=== PATIENT | female | born 1940 | race Two or more races ===

== ENCOUNTER 2025-01-15 02:43 | Inpatient (IN) | payer MEDICAID, OTHER ==
[~2025-01-15] VITALS: Ht 162.6 cm; Wt 72.6 kg
[2025-01-15] MEDS ORDERED: OMEP40CA21 PO (03:37)
[2025-01-15] MEDS ORDERED: LOSA50TA39 PO (03:37)
[2025-01-15] MEDS ORDERED: ALPR-324 PO (03:43)
[2025-01-15] MEDS ORDERED: HYDR-500 PO (03:43)
[2025-01-15 04:13] LABS: PLATELET COUNT (AUTO) 312 K/uL (150-450); RED BLOOD CELL COUNT(AUTO) 4.31 MIL/uL (4.0-5.2); RED CELL DISTRIBUTION WIDTH 13.6 % (11.5-15.0); WHITE BLOOD COUNT (AUTO) 6.5 K/uL (4.3-11.0)
[2025-01-15 04:29] LABS: INR 0.98 (0.91-1.10); LACTIC ACID 1.5 mmol/L (0.4-2.0)
[2025-01-15 04:33] LABS: ALCOHOL, BLOOD < 3 mg/dL (0-10); ASPARTATE AMINOTRANSFERASE 18 U/L (15-37); CALCIUM, SERUM 9.7 mg/dL (8.5-10.1); CREATININE 0.7 mg/dL (0.6-1.3); SODIUM SERUM 140 mmol/L (136-145); TOTAL PROTEIN, SERUM 7.1 g/dL (6.4-8.2); UREA NITROGEN, BLOOD 7 mg/dL (7-18)
[2025-01-15 04:35] LABS: AMPHETAMINE, URINE NEGATIVE (NEGATIVE); BARBITURATE, URINE NEGATIVE (NEGATIVE); BENZODIAZEPINE, URINE POSITIVE (NEGATIVE); CANNABINOID, URINE NEGATIVE (NEGATIVE); COCCAINE, URINE NEGATIVE (NEGATIVE); OPIATE, URINE NEGATIVE (NEGATIVE)
[2025-01-15 04:54] LABS: PHENOBARBITAL < 15 ug/ml (15-39); VALPROIC ACID < 3 ug/mL (50-100)
[2025-01-15 05:12] LABS: APPEARANCE,URINE SLIGHTLY CLOUDY (CLEAR); BLOOD, URINE 1+ Ery/uL (NEGATIVE); LEUKOCYTE ESTERASE ,URINE 3+ (NEGATIVE); NITRITE, URINE NEGATIVE (NEGATIVE); UGLUCOSE NEGATIVE (NEGATIVE)
[2025-01-15 05:15] LABS: ADD URINE CULTURE YES; SQUAMOUS EPITHELIAL CELL,UR Rare /HPF (None Seen)
[2025-01-15] MEDS ORDERED: CIPROFLOXACIN IV RTU 200 ML IV ONE (05:36)
[2025-01-15] MEDS: CIPROFLOXACIN IV RTU 400 MG in PREMIX 1 EA IV SCH (05:46)
[2025-01-15 07:52] VITALS: BP 146/52; TEMP 98.2; O2SAT 96
[2025-01-15] MEDS ORDERED: ONDANSETRON HCL/PF 4 MG/2 ML VIAL IVP PRN (10:00)
[2025-01-15] MEDS ORDERED: ACETAMINOPHEN 325 MG TABLET PO PRN (10:00)
[2025-01-15] MEDS ORDERED: Z GUARD REMEDY 4 OZ OINT TP PRN (10:00)
[2025-01-15] MEDS ORDERED: MAG HYDROX/AL HYDROX/SIMETH 30 ML UDC PO PRN (10:00)
[2025-01-15] MEDS ORDERED: MAGNESIUM HYDROXIDE 30 ML UDC PO PRN (10:00)
[2025-01-15] MEDS ORDERED: [UNRECOGNIZED DRUG - CODE] IV (12:26)
[2025-01-15] MEDS ORDERED: LOSARTAN POTASSIUM 50 MG TABLET PO SCH (17:00)
[2025-01-15] MEDS ORDERED: CIPROFLOXACIN IV RTU 400 MG in PREMIX 1 EA IV SCH (18:00)
[2025-01-15] MEDS ORDERED: ALPRAZOLAM 1 MG TABLET PO SCH (22:00)
[2025-01-16] MEDS ORDERED: PANTOPRAZOLE 40 MG TABLET.DR PO SCH (09:00)
== END 2025-01-15 12:45 | disposition short-term general hospital (02) | DRG 53 ==
LOC: ER 02:45 → MEDSG1 10:20
PROVIDERS: ADMIT Nurse Practitioner Acute Care; ATTEND Nurse Practitioner Acute Care
DX: R56.9 Unspecified convulsions (principal); F03.94 Unspecified dementia, unspecified severity, with anxiety; F41.9 Anxiety disorder, unspecified; N39.0 Urinary tract infection, site not specified; B96.89 Other specified bacterial agents as the cause of diseases classified elsewhere; Z79.899 Other long term (current) drug therapy; Z88.0 Allergy status to penicillin; I10 Essential (primary) hypertension; R41.82 Altered mental status, unspecified
CPT/HCPCS: 36415; 70450-TC; 71045-TC; 80048-TC; 80076-TC; 80164-TC; 80184; 80185-TC; 81001; 82962-TC; 83605-TC; 84484-TC; 85025-TC; 85730-TC; 87086-TC; A4216; G0378; G0480; J0744